=== PATIENT | female | born 2000 | race Caucasian/White ===

== ENCOUNTER 2021-12-27 18:42 | Emergency (ER) | payer BC, OTHER ==
[~2021-12-27] VITALS: Ht 167.7 cm; Wt 68.0 kg
--- NOTE | 2021-12-27 18:51 | ED General ---
General Chief Complaint: General Problems/Pain Stated Complaint: LIGHT HEADED Source of Information: Patient Exam Limitations: No Limitations (RODOLFO LEBLANC APRN) History of Present Illness Date Seen by Provider: Dec 27, 2021 Time Seen by Provider: 18:48 Initial Comments To ER by EMS with reports of lightheadedness that began while she was driving around 5 PM she then summoned an ambulance because of her symptoms and she could not feel her arms. She was found to have a fingerstick blood glucose of 55 and was given oral glucose. On arrival to ER she feels a little better but still has some loss of sensation in both of her arms. She is tearful. She states that she does feel anxious now but did not feel anxious initially. She takes no medications. She works for [employer], lives in [place]. Timing/Duration: 1 Hour Severity: Moderate Associated Systoms: Malaise (RODOLFO LEBLANC APRN) Allergies and Home Medications Patient Home Medication List Home Medication List Reviewed: Yes (RODOLFO LEBLANC APRN) Review of Systems Review of Systems Constitutional: see HPI EENTM: see HPI Respiratory: no symptoms reported Cardiovascular: no symptoms reported Genitourinary: no symptoms reported Musculoskeletal: no symptoms reported Skin: no symptoms reported Psychiatric/Neurological: See HPI, Paresthesia Hematologic/Lymphatic: No Symptoms Reported Immunological/Allergic: no symptoms reported (RODOLFO LEBLANC APRN) Past Qjpkklr-[id number]-Xlhxhn Hx Patient Social History Tobacco Use?: No Use of E-Cig and/or Vaping dev: No Substance use?: No Alcohol Use?: No (RODOLFO LEBLANC APRN) Immunizations Up To Date Influenza Vaccine Up-to-Date: Yes; Up-to-Date First/Initial COVID19 Vaccinat: 2020 Second COVID19 Vaccination Hugo: 2020 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 oz. kg; BMI Method: General Appearance: No Apparent Distress, WD/WN, Anxious (Tearful, shaking. Using both of her hands to squeeze oral glucose gel out of the tube.) Eyes: Bilateral Eye Normal Inspection, Bilateral Eye PERRL, Bilateral Eye EOMI Neck: Full Range of Motion, Normal Inspection Respiratory: No Accessory Muscle Use, No Respiratory Distress Cardiovascular: Normal Peripheral Pulses, Tachycardia (Rate of 105.) Gastrointestinal: Normal Bowel Sounds, Non Tender, Soft Extremity: Normal Capillary Refill, Normal Inspection Neurologic/Psychiatric: Alert, Oriented x3 Skin: Normal Color, Warm/Dry (RODOLFO LEBLANC APRN) Progress/Results/Core Measures Suspected Sepsis SIRS Temperature: Pulse: Respiratory Rate: Laboratory Tests 12/27/21 18:50: White Blood Count 10.7 Blood Pressure / Mean: Laboratory Tests 12/27/21 18:50: Platelet Count 365 (RODOLFO LEBLANC APRN) Results/Orders Lab Results Laboratory Tests Test 12/27/21 18:49 12/27/21 18:50 12/27/21 18:52 Range/Units Glucometer 87 70-110 MG/DL White Blood Count 10.7 4.3-11.0 10^3/uL Red Blood Count 5.16 H 3.80-5.11 10^6/uL Hemoglobin 14.1 11.5-16.0 g/dL Hematocrit 42 35-52 % Mean Corpuscular Volume 82 80-99 fL Mean Corpuscular Hemoglobin 27 25-34 pg Mean Corpuscular Hemoglobin Concent 33 32-36 g/dL Red Cell Distribution Width 11.9 10.0-14.5 % Platelet Count 365 130-400 10^3/uL Mean Platelet Volume 10.2 9.0-12.2 fL Immature Granulocyte % (Auto) 0 % Neutrophils (%) (Auto) 56 42-75 % Lymphocytes (%) (Auto) 34 12-44 % Monocytes (%) (Auto) 8 0-12 % Eosinophils (%) (Auto) 1 0-10 % Basophils (%) (Auto) 0 0-10 % Neutrophils # (Auto) 6.0 1.8-7.8 10^3/uL Lymphocytes # (Auto) 3.6 1.0-4.0 10^3/uL Monocytes # (Auto) 0.9 0.0-1.0 10^3/uL Eosinophils # (Auto) 0.1 0.0-0.3 10^3/uL Basophils # (Auto) 0.0 0.0-0.1 10^3/uL Immature Granulocyte # (Auto) 0.0 0.0-0.1 10^3/uL Sodium Level 138 135-145 MMOL/L Potassium Level 3.2 L 3.6-5.0 MMOL/L Chloride Level 104 98-107 MMOL/L Carbon Dioxide Level 20 L 21-32 MMOL/L Anion Gap 14 5-14 MMOL/L Blood Urea Nitrogen 12 7-18 MG/DL Creatinine 0.87 0.60-1.30 MG/DL Estimat Glomerular Filtration Rate 97 BUN/Creatinine Ratio 14 Glucose Level 100 70-105 MG/DL Calcium Level 9.4 8.5-10.1 MG/DL Corrected Calcium 8.5-10.1 MG/DL Total Bilirubin 0.3 0.1-1.0 MG/DL Aspartate Amino Transf (AST/SGOT) 19 5-34 U/L Alanine Aminotransferase (ALT/SGPT) 20 0-55 U/L Alkaline Phosphatase 68 40-136 U/L Total Protein 7.8 6.4-8.2 GM/DL Albumin 4.7 H 3.2-4.5 GM/DL Serum Test, Qualitative NEGATIVE NEGATIVE Urine Color YELLOW Urine Clarity CLOUDY Urine pH 7.0 5-9 Urine Specific Ruth 1.015 L 1.016-1.022 Urine Protein NEGATIVE NEGATIVE Urine Glucose (UA) NEGATIVE NEGATIVE Urine Ketones NEGATIVE NEGATIVE Urine Nitrite NEGATIVE NEGATIVE Urine Bilirubin NEGATIVE NEGATIVE Urine Urobilinogen 0.2 < = 1.0 MG/DL Urine Leukocyte Esterase 1+ H NEGATIVE Urine RBC (Auto) 3+ H NEGATIVE Urine RBC 50-100 H /HPF Urine WBC 0-2 /HPF Urine Crystals NONE /LPF Urine Bacteria TRACE /HPF Urine Casts NONE /LPF Urine Mucus NEGATIVE /LPF Urine Culture Indicated NO Urine Opiates Screen NEGATIVE NEGATIVE Urine Oxycodone Screen NEGATIVE NEGATIVE Urine Methadone Screen NEGATIVE NEGATIVE Urine Propoxyphene Screen NEGATIVE NEGATIVE Urine Barbiturates Screen NEGATIVE NEGATIVE Ur Tricyclic Antidepressants Screen NEGATIVE NEGATIVE Urine Phencyclidine Screen NEGATIVE NEGATIVE Urine Amphetamines Screen NEGATIVE NEGATIVE Urine Methamphetamines Screen NEGATIVE NEGATIVE Urine Benzodiazepines Screen NEGATIVE NEGATIVE Urine Cocaine Screen NEGATIVE NEGATIVE Urine Cannabinoids Screen NEGATIVE NEGATIVE (NYASIA,CLARISSE MIXING SUPERVISOR) Vital Signs/I&O 12/27/21 18:43 Temp 36.8 Pulse 104 Resp 20 B/P (MAP) 124/93 (103) O2 Delivery Room Air (CLARISSE MURRELL) Vital Signs/I&O Capillary Refill : (RODOLFO LEBLANC APRN) Progress Note : Progress Note 1899 report received from Rodolfo Leblanc APRN. Assumed care of patient. Reassessed patient, reports to be feeling much better. Awaiting lab results. She is taking Pedialyte and water. She has occasional tingling in bilateral upper extremities but no other symptoms at the present time. 1955 patient has full range of motion, full sensation to light touch in bilateral upper extremities. She reports complete resolution of symptoms. She has a follow-up appointment with her primary care provider tomorrow. Discharge instructions and return precautions reviewed. (CLARISSE MURRELL) ECG Initial ECG Impression Date: Dec 27, 2021 Initial ECG Impression Time: 18:49 Initial ECG Rate: 86 Initial ECG Rhythm: Normal Sinus Initial ECG Intervals: Normal Initial ECG Intervals MI 150, QRS D 84, QT 366, QTc 438. [place] P 56, QRS -6, T 28. Initial ECG Impression: Normal Initial ECG Comparisson: No Previous ECG Available (CLARISSE MURRELL) Departure Communication (Admissions) EKG shows sinus rhythm at 86 normal intervals no ectopy no ST segment change 1901-she is feeling better at this time. Her mother is at the bedside. (RODOLFO LEBLANC APRN) Impression Primary Impression: Hypoglycemia Disposition: 01 HOME, SELF-CARE Condition: Stable Departure-Patient Inst. Decision time for Depature: 19:55 (CLARISSE MURRELL) Patient Instructions: Low Blood Sugar, Adult (DC) Add. Discharge Instructions: Activity as tolerated. Eat small frequent meals. Follow-up with your primary care provider if symptoms are not improving or worsen. Return to the emergency department for new, urgent healthcare needs. All discharge instructions reviewed with patient and/or family. Voiced understanding. RODOLFO LEBLANC APRN Dec 27, 2021 18:51 CLARISSE MURRELL Dec 27, 2021 20:06
[2021-12-27 18:56] LABS: BASOPHILS % (AUTO) 0 % (0-10); EOSINOPHILS # (AUTO) 0.1 10^3/uL (0.0-0.3); EOSINOPHILS % (AUTO) 1 % (0-10); HEMATOCRIT 42 % (35-52); HEMOGLOBIN 14.1 g/dL (11.5-16.0); LYMPHOCYTES # (AUTO) 3.6 10^3/uL (1.0-4.0); LYMPHOCYTES % (AUTO) 34 % (12-44); MEAN CORPUSCULAR HEMOGLOBIN 27 pg (25-34); MEAN CORPUSCULAR HGB CONC 33 g/dL (32-36); MEAN CORPUSCULAR VOLUME 82 fL (80-99); MEAN PLATELET VOLUME 10.2 fL (9.0-12.2); MONOCYTES # (AUTO) 0.9 10^3/uL (0.0-1.0); MONOCYTES % (AUTO) 8 % (0-12); NEUTROPHILS % (AUTO) 56 % (42-75); PLATELET COUNT 365 10^3/uL (130-400); WHITE BLOOD COUNT 10.7 10^3/uL (4.3-11.0)
[2021-12-27 18:59] LABS: BILIRUBIN,URINE NEGATIVE (NEGATIVE); CLARITY,URINE CLOUDY; COLOR,URINE YELLOW; GLUCOSE, URINE (UA) NEGATIVE (NEGATIVE); KETONES,URINE NEGATIVE (NEGATIVE); LEUKOCYTE ESTERASE ,URINE 1+ (NEGATIVE); NITRITE,URINE NEGATIVE (NEGATIVE); PROTEIN,URINE NEGATIVE (NEGATIVE)
[2021-12-27 19:09] LABS: ALBUMIN 4.7 GM/DL (3.2-4.5); CHLORIDE 104 MMOL/L (98-107); POTASSIUM 3.2 MMOL/L (3.6-5.0); SODIUM 138 MMOL/L (135-145)
[2021-12-27 19:11] LABS: CALCIUM 9.4 MG/DL (8.5-10.1); GLUCOSE 100 MG/DL (70-105)
[2021-12-27 19:12] LABS: TOTAL PROTEIN 7.8 GM/DL (6.4-8.2)
[2021-12-27 19:13] LABS: BILIRUBIN,TOTAL 0.3 MG/DL (0.1-1.0); CARBON DIOXIDE 20 MMOL/L (21-32)
[2021-12-27 19:15] LABS: ALKALINE PHOSPHATASE 68 U/L (40-136)
[2021-12-27 19:18] LABS: BACTERIA,URINE TRACE /HPF; RBC,URINE 50-100 /HPF; WBC,URINE 0-2 /HPF
[2021-12-27 19:18] LABS: ALANINE AMINOTRANSFERASE 20 U/L (0-55)
[2021-12-27 19:20] LABS: AMPHETAMINE SCREEN, URINE NEGATIVE (NEGATIVE); BARBITURATE SCREEN URINE NEGATIVE (NEGATIVE); BENZODIAZEPINES SCREEN URINE NEGATIVE (NEGATIVE); CANNABINOID SCREEN, URINE NEGATIVE (NEGATIVE); COCAINE SCREEN URINE NEGATIVE (NEGATIVE); METHADONE STAT NEGATIVE (NEGATIVE); METHAMPHETAMINE SCREEN URINE S NEGATIVE (NEGATIVE); OPIATE SCREEN URINE NEGATIVE (NEGATIVE); OXYCODONE STAT NEGATIVE (NEGATIVE); PROPOXYPHENE STAT NEGATIVE (NEGATIVE); TRICYCLIC ANTIDEPRESSANTS SCRE NEGATIVE (NEGATIVE)
[2021-12-27 19:58] LABS: BUN/CREATININE RATIO 14; CREATININE SERUM 0.87 MG/DL (0.60-1.30); GFR ESTIMATED 97
[2021-12-27 20:20] VITALS: BP 111/80
== END 2021-12-27 20:20 | disposition home or self-care (01) ==
LOC: EDUNIT# 18:42 → ER 18:45
DX: E16.2 Hypoglycemia, unspecified (principal); Z32.02 Encounter for pregnancy test, result negative
CPT/HCPCS: 36415; 80053; 80306; 81000; 82947; 84703; 85025; 93005